=== PATIENT | female | born 1980 ===

== ENCOUNTER 2024-10-05 12:00 | Inpatient (IN) | payer OTHER ==
[~2024-10-05] VITALS: Ht 121.9 cm; Wt 56.7 kg
[2024-10-05] MEDS ORDERED: ADDERALL 30 MG30 MG PO (14:00)
[2024-10-05] MEDS ORDERED: CELEXA20 MG PO (14:01)
[2024-10-05 14:27] VITALS: BP 138/89
[2024-10-05 15:15] LABS: RH POSITIVE
[2024-10-09] MEDS ORDERED: CEFAZOLIN SODIUM 1,000 MG VIAL ONE (11:33)
[2024-10-09] MEDS ORDERED: POVIDONE-IODINE 118 ML BOTT TOP ONE (11:33)
[2024-10-09] MEDS ORDERED: SURGIFLO APPLICATOR 1 EACH APPL TOP ONE (12:56)
[2024-10-09] MEDS ORDERED: HEMOSTATIC MATRIX 1 KIT KIT TOP ONE (12:56)
[2024-10-09] MEDS ORDERED: ONDANSETRON HCL 2 MG/ML VIAL IV PRN (13:30)
[2024-10-09] MEDS ORDERED: MORPHINE SULFATE 4 MG/ML VIAL IV PRN (13:30)
[2024-10-09] MEDS ORDERED: RINGERS SOLUTION,LACTATED 1,000 ML IV SCH (13:30)
[2024-10-09] MEDS ORDERED: SUGAMMADEX SODIUM 200 MG/2 ML VIAL IV ONE (13:43)
[2024-10-09] MEDS ORDERED: MORPHINE SULFATE 4 MG,MORPHINE SULFATE 2 MG IV PRN (14:00)
[2024-10-09] MEDS ORDERED: MORPHINE SULFATE 4 MG/ML VIAL IV ONE (14:45)
[2024-10-09 16:14] VITALS: BP 122/77
[2024-10-09 17:58] LABS: HEMATOCRIT 37.2 % (36.0-45.00); HEMOGLOBIN 12.4 g/dL (12.0-15.00); MEAN CORPUSCULAR HEMOGLOBIN 31.4 pg (27.00-32.0); MEAN CORPUSCULAR HGB CONC 33.4 g/dl (32.0-36.0); PLATELET COUNT 175 K/uL (150-450); RED BLOOD COUNT 3.96 M/uL (4.00-6.00); RED CELL DISTRIBUTION WIDTH 13.4 % (11.5-14.5)
[2024-10-09] MEDS ORDERED: CEFAZOLIN SODIUM 1,000 MG VIAL IV SCH (18:00)
[2024-10-10 01:00] VITALS: BP 127/85
[2024-10-10] MEDS ORDERED: IBU800 MG PO (06:49)
[2024-10-10] MEDS ORDERED: SIMETHICONE80 MG PO (06:50)
[2024-10-10] MEDS ORDERED: NEURONTIN300 MG PO (06:51)
[2024-10-10] MEDS ORDERED: IBUprofen 800 MG TABLET PO SCH (08:00)
[2024-10-10 08:12] VITALS: BP 137/80
[2024-10-10] MEDS ORDERED: ENOXAPARIN SODIUM 40 MG/0.4 ML SYRINGE SUBCUTANEO SCH (09:00)
[2024-10-10] MEDS ORDERED: GABAPENTIN 300 MG CAPSULE PO SCH (13:00)
[2024-10-10] MEDS ORDERED: SIMETHICONE 125 MG CAPSULE PO SCH (13:00)
== END 2024-10-10 12:26 | disposition home or self-care (01) | DRG 743 ==
LOC: O/R 10-09 05:58 → SURH 10-09 08:30 → OB/GYN 10-09 14:42
PROVIDERS: ADMIT Obstetrics & Gynecology Gynecology; ATTEND Obstetrics & Gynecology Gynecology
PROC: 0UT74ZZ Resection of Bilateral Fallopian Tubes, Percutaneous Endoscopic Approach (ICD-10-PCS; 2024-10-09)
PROC: 0UT94ZZ Resection of Uterus, Percutaneous Endoscopic Approach (ICD-10-PCS; principal; 2024-10-09 08:30)
DX: D25.1 Intramural leiomyoma of uterus (principal); D25.2 Subserosal leiomyoma of uterus; N92.1 Excessive and frequent menstruation with irregular cycle; N72 Inflammatory disease of cervix uteri